=== PATIENT | female | born 1995 | race American Indian/Alaskan Native ===

== ENCOUNTER 2016-08-25 04:12 | Emergency (ER) | payer SELFPAY ==
[2016-08-25 04:27] VITALS: BP 129/85
== END 2016-08-25 06:30 | disposition left against medical advice (07) ==
LOC: ED 04:12
DX: H57.8 Other specified disorders of eye and adnexa (principal); Z53.21 Procedure and treatment not carried out due to patient leaving prior to being seen by health care provider

== ENCOUNTER 2020-11-11 22:50 | Emergency (ER) | payer BC, OTHER ==
[2020-11-11] MEDS ORDERED: ACETAMINOPHEN 500 MG TAB PO ONE (22:56)
[2020-11-11 23:05] VITALS: BP 132/81
[2020-11-11] MEDS ORDERED: ONDANSETRON 4 MG ODT TAB PO ONE (23:38)
[2020-11-11 23:39] LABS: Basophils % (Auto) 0.1 % (0.0-1.8); Eosinophils % (Auto) 0.1 % (0.0-4.3); Hematocrit 40.1 % (30.3-42.9); Hemoglobin 13.5 gm/dl (10.1-14.3); Lymphocytes % (Auto) 7.4 % (13.4-35.0); Mean Corpuscular HGB Conc 34 % (30-34); Mean Corpuscular Volume 89 fl (79-97); Monocytes # (Auto) 0.8 K/mm3 (0.0-0.8); Platelet Count 292 K/mm3 (140-440); Red Blood Count 4.52 M/mm3 (3.65-5.03); Red Cell Distribution Width 12.9 % (13.2-15.2)
[2020-11-12 00:03] LABS: Alanine Aminotransferase 18 units/L (7-56); Albumin 4.1 g/dL (3.9-5); Blood Urea Nitrogen 7 mg/dL (7-17); Calcium 9.5 mg/dL (8.4-10.2); Hemolysis Index 4
--- NOTE | 2020-11-12 00:29 | XRay Report ---
CHEST 1 VIEW INDICATION: FEVER. COMPARISON: None FINDINGS: SUPPORT DEVICES: None. HEART: Within normal limits. LUNGS/PLEURA: Mild bilateral central peribronchial thickening and interstitial thickening as could be seen with tracheobronchitis for example. Given the symmetry, a component of interstitial edema is in the differential despite the history. ADDITIONAL FINDINGS: None. IMPRESSION: 1. Pulmonary findings as above. Signer Name: Donn Diaz MD Signed: 11/12/2020 12:25 AM Workstation Name: [id number]
[2020-11-12 00:46] LABS: BUN/Creatinine Ratio 10
[2020-11-12 02:49] LABS: Bacteria,Urine 1+ /HPF (Negative); Bilirubin,Urine NEG (Negative); Blood,Urine NEG (Negative); Color,Urine Yellow (Yellow); Protein,Urine <15 mg/dL mg/dL (Negative); Urobilinogen,Urine < 2.0 mg/dL (<2.0)
--- NOTE | 2020-11-12 03:05 | Emergency Department Report ---
- General Chief Complaint: Fever Stated Complaint: SOB/NAUSEA/CHILLS/FEVER Source: patient Mode of arrival: Ambulatory Limitations: No Limitations - History of Present Illness Initial Comments: Patient is a 25-year-old -Mosoth[place] female with no past medical history presents to the ED with complaint of acute onset persistent diffuse body aches and pains, nasal and sinus congestion, persistent dry cough, intermittent fever and chills and nausea for the last 2 days. Patient states that her own son has had similar symptoms. Patient states that she has been taking [id number] medication with no relief. Patient denies dizziness, syncope, chest pain, shortness of breath, vomiting, abdominal pain, diarrhea, dysuria, urinary frequency and urgency, sore throat, headache or back pain, vaginal bleeding or vaginal discharge. MD Complaint: fever, cough, rhinorrhea, nasal congestion, sinus pain, other (Body aches and pains) -: Sudden, days(s) (2) Severity: severe Severity scale (0 -10): 7 Quality: sharp, aching Consistency: constant Improves With: nothing Worsens With: nothing Context: sick contacts Associated Symptoms: denies other symptoms, fever, chills, myalgias, headache, rhinorrhea, nasal congestion, cough, nausea. denies: diaphoresis, sore throat, stiff neck, chest pain, shortness of breath, abdominal pain, vomiting, diarrhea, dysuria, rash, confusion, right sweats, weight loss, epistaxis, hoarseness, ear pain, other Treatments Prior to Arrival: "cold medicine" - Related Data Previous Rx's Medication Instructions Recorded Last Taken Type Azithromycin [Zithromax Z-TOBIAS] 250 mg PO DAILY #6 tablet 11/12/20 Unknown Rx Benzonatate [Tessalon Perles] 100 mg PO Q8HR #30 capsule 11/12/20 Unknown Rx Cetirizine HCl [Zyrtec 10mg tab] 10 mg PO DAILY #30 tablet 11/12/20 Unknown Rx Ibuprofen [Motrin] 800 mg PO Q8HR PRN #30 tablet 11/12/20 Unknown Rx Ondansetron [Zofran Odt] 4 mg PO Q8HR PRN #15 tab.rapdis 11/12/20 Unknown Rx Allergies Allergy/AdvReac Type Severity Reaction Status Date / Time No Known Allergies Allergy Verified 11/11/20 23:38 ED Review of Systems ROS: Stated complaint: SOB/NAUSEA/CHILLS/FEVER Other details as noted in HPI Constitutional: chills, fever, malaise, weakness Eyes: denies: eye pain, eye discharge, vision change ENT: congestion, other (Nasal and sinus congestion). denies: ear pain, throat pain Respiratory: cough. denies: shortness of breath, wheezing Cardiovascular: denies: chest pain, palpitations Endocrine: no symptoms reported Gastrointestinal: nausea. denies: abdominal pain, vomiting, diarrhea Genitourinary: denies: urgency, dysuria, discharge Musculoskeletal: arthralgia, myalgia. denies: back pain, joint swelling Skin: denies: rash, lesions Neurological: headache. denies: weakness, paresthesias Psychiatric: denies: anxiety, depression Hematological/Lymphatic: denies: easy bleeding, easy bruising ED Past Medical Hx - Past Medical History Previous Medical History?: No - Surgical History Past Surgical History?: No - Social History Smoking Status: Never Smoker Substance Use Type: Alcohol - Medications Home Medications: Home Medications Medication Instructions Recorded Confirmed Last Taken Type Azithromycin [Zithromax Z-TOBIAS] 250 mg PO DAILY #6 tablet 11/12/20 Unknown Rx Benzonatate [Tessalon Perles] 100 mg PO Q8HR #30 capsule 11/12/20 Unknown Rx Cetirizine HCl [Zyrtec 10mg tab] 10 mg PO DAILY #30 tablet 11/12/20 Unknown Rx Ibuprofen [Motrin] 800 mg PO Q8HR PRN #30 tablet 11/12/20 Unknown Rx Ondansetron [Zofran Odt] 4 mg PO Q8HR PRN #15 tab.rapdis 11/12/20 Unknown Rx ED Physical Exam - General Limitations: No Limitations General appearance: alert, in no apparent distress - Head Head exam: Present: atraumatic, normocephalic, normal inspection - Eye Eye exam: Present: normal appearance, PERRL, EOMI Pupils: Present: normal accommodation - ENT ENT exam: Present: normal orophraynx, mucous membranes moist, TM's normal bilaterally, normal external ear exam, other (Grossly congested nasal passages; palpable frontal and maxillary sinus tenderness) - Neck Neck exam: Present: normal inspection, full ROM - Respiratory Respiratory exam: Present: normal lung sounds bilaterally. Absent: respiratory distress, wheezes, rales, rhonchi, chest wall tenderness, accessory muscle use - Cardiovascular Cardiovascular Exam: Present: normal rhythm, tachycardia, normal heart sounds. Absent: systolic murmur, diastolic murmur, rubs, gallop - GI/Abdominal GI/Abdominal exam: Present: soft, normal bowel sounds. Absent: tenderness, guarding, rebound, hyperactive bowel sounds, hypoactive bowel sounds, organomegaly - Extremities Exam Extremities exam: Present: normal inspection, full ROM, normal capillary refill - Back Exam Back exam: Present: normal inspection, full ROM. Absent: tenderness, CVA tenderness (R), CVA tenderness (L), muscle spasm, paraspinal tenderness, vertebral tenderness - Neurological Exam Neurological exam: Present: alert, oriented X3, CN II-XII intact, normal gait, reflexes normal - Psychiatric Psychiatric exam: Present: normal affect, normal mood - Skin Skin exam: Present: warm, dry, intact, normal color. Absent: rash ED Course Vital Signs 11/11/20 11/12/20 22:54 03:27 Temperature 100.3 F H 99.1 F Pulse Rate 121 H 93 H Respiratory 16 98 H Rate Blood Pressure 132/81 O2 Sat by Pulse 97 Oximetry ED Medical Decision Making - Lab Data Result diagrams: 11/11/20 23:23 11/11/20 23:23 - Radiology Data Radiology results: report reviewed, image reviewed [address] [address] XRay Report Signed Patient: MAYKEL MIRANDA MR#: [id number] : 1995 Acct:[id number] Age/Sex: 25 / F ADM Date: 11/11/20 Loc: ED Attending Dr: Ordering Physician: SHANKAR HILARIO Date of Service: 11/11/20 Procedure(s): XR chest 1V ap Accession Number(s): [id number] cc: SHANKAR HILARIO Fluoro Time In Minutes: CHEST 1 VIEW INDICATION: FEVER. COMPARISON: None FINDINGS: SUPPORT DEVICES: None. HEART: Within normal limits. LUNGS/PLEURA: Mild bilateral central peribronchial thickening and interstitial thickening as could be seen with tracheobronchitis for example. Given the symmetry, a component of interstitial edema is in the differential despite the history. ADDITIONAL FINDINGS: None. IMPRESSION: 1. Pulmonary findings as above. Signer Name: Donn Diaz MD Signed: 11/12/2020 12:25 AM Workstation Name: [id number] Transcribed By: LEDA Dictated By: Donn Diaz MD Electronically Authenticated By: Donn Diaz MD Signed Date/Time: 11/12/2024 DD/ TD/TT: - Medical Decision Making This is a 25-year-old -[place]osoth[place] female with no past medical history presents to the ED with complaint of acute onset persistent diffuse body aches and pains, nasal and sinus congestion, persistent dry cough, intermittent fever and chills and nausea for the last 2 days. Patient states that her own son has had similar symptoms. Patient states that she has been taking [id number] medication with no relief. In the ED, patient is alert and oriented x3 and is not in any distress but febrile and tachycardic in triage. Lab test results were reviewed and are all nonactionable except for acute leukocytosis of 12,900. Chest x-ray showed mild bilateral central peribronchial thickening and interstitial thickening as could be seen with tracheobronchitis for example. Patient was treated in the ED for fever, and on reevaluation, patient fever improved significantly and tachycardia resolved. Patient was therefore discharged home on medications and advised to follow-up with her primary care physician in 7 to 10 days for reevaluation. Patient was also encouraged to go for COVID-19 diagnostic test in one of the outpatient facilities. Patient is advised return to the ED immediately if symptoms get worse. - Differential Diagnosis URI; pneumonia; bronchitis; sinusitis; COVID-19 Critical care attestation.: If time is entered above; I have spent that time in minutes in the direct care of this critically ill patient, excluding procedure time. ED Disposition Clinical Impression: Acute upper respiratory infection, Fever and chills Acute bronchitis Qualifiers: Bronchitis organism: other organism Qualified Code(s): J20.8 - Acute bronchitis due to other specified organisms Acute frontal sinusitis, unspecified Qualifiers: Recurrence: non-recurrent Qualified Code(s): J01.10 - Acute frontal sinusitis, unspecified Disposition: 01 HOME / SELF CARE / HOMELESS Is pt being admited?: No Does the pt Need Aspirin: No Condition: Stable Instructions: Sinusitis, Adult, [id number], Acute Bronchitis, Adult, [id number], Upper Respiratory Infection, Adult, [id number], Fever, Adult, [id number]-um-[id number], Acute Bronchitis (ED) Additional Instructions: All lab test results were reviewed and are all nonactionable. Chest x-ray shows no acute cardiopulmonary abnormalities or pneumonitis. Therefore take medications with food, drink plenty of fluids and follow-up with your primary care physician in 7 to 10 days for reevaluation. Consider going for COVID-19 diagnosis test in one of the facilities. Return to the ED immediately if symptoms get worse. Prescriptions: Ibuprofen [Motrin] 800 mg PO Q8HR PRN #30 tablet PRN Reason: Pain , Severe (7-10) Benzonatate [Tessalon Perles] 100 mg PO Q8HR #30 capsule Azithromycin [Zithromax Z-TOBIAS] 250 mg PO DAILY #6 tablet Ondansetron [Zofran Odt] 4 mg PO Q8HR PRN #15 tab.rapdis PRN Reason: Nausea Cetirizine HCl [Zyrtec 10mg tab] 10 mg PO DAILY #30 tablet Referrals: [facility] [Provider Group] - 7-10 days Time of Disposition: 03:05 Print Language: BRITISH
== END 2020-11-12 03:54 | disposition home or self-care (01) ==
LOC: ED 22:50
DX: J06.9 Acute upper respiratory infection, unspecified (principal); R50.9 Fever, unspecified; R05 Cough; R11.0 Nausea
CPT/HCPCS: 36415; 71045; 80053; 81001; 84703; 85025; 99283; Q0162